=== PATIENT | male | born 1990 | race Caucasian/White ===

== ENCOUNTER 2019-03-03 15:42 | Inpatient (IN) | payer MEDICAID, OTHER ==
[~2019-03-03] VITALS: Ht 160 cm; Wt 67.6 kg
[2019-03-03] MEDS ORDERED: ONDANSETRON HCL 4MG/2ML INJ IV STA (18:30)
[2019-03-03] MEDS ORDERED: SODIUM CHLORIDE 0.9% 1,000 ML IV ONE (18:30)
[2019-03-03] MEDS ORDERED: MORPHINE SULFATE 4 MG/ML CPJ (NOT FOR IM USE) IV STA (18:30)
[2019-03-03 18:46] LABS: BASOPHILS % 0.1 % (0.0-2.0); HEMOGLOBIN. 14.4 g/dL (14.0-18.0); LYMPHOCYTES % 8.6 % (20.0-50.0); MEAN CORPUSCULAR HEMOGLOBIN 29.8 pg (28.0-32.0); MEAN CORPUSCULAR VOLUME 87.2 fL (80.0-94.0); MEAN PLATELET VOLUME 7.9 fl (7.4-10.4); MONOCYTES % 6.2 % (2.0-8.0); NEUTROPHILS % 85.1 % (40.0-76.0); PLATELET 229 x1000/uL (130-400); RED BLOOD CELL COUNT 4.82 mill/uL (4.7-6.1)
[2019-03-03 18:51] LABS: CHLORIDE 100 mEq/L (98-107)
[2019-03-03 18:53] LABS: INR 1.1; PARTIAL THROMBOPLASTIN TIME 27.6 sec (23.4-31.0); PROTHROMBIN TIME 11.3 sec (9.6-11.0)
[2019-03-03 19:33] LABS: CLARITY URINE CLEAR (CLEAR); COLOR URINE YELLOW (YELLOW); KETONES URINE TRACE (NEGATIVE); LEUKOCYTE ESTERASE URINE NEGATIVE (NEGATIVE); NITRITE URINE NEGATIVE (NEGATIVE); OCCULT BLOOD URINE NEGATIVE (NEGATIVE); PH URINE 7.5 (4.5-8.0); PROTEIN URINE NEGATIVE (NEGATIVE); SPECIFIC GRAVITY URINE 1.015 (1.005-1.030); UROBILINOGEN URINE 0.2 E.U./dL (0.2-1.0)
[2019-03-03] MEDS ORDERED: IOHEXOL-300 100 ML BOTTLE ONE (19:44)
[2019-03-03] MEDS ORDERED: PIPERACILLIN/TAZ 3.375G PREMIX 50 ML IV ONE (20:00)
[2019-03-03] MEDS ORDERED: MORPHINE SULFATE 4 MG/ML CPJ (NOT FOR IM USE) IV ONE (20:15)
[2019-03-03] MEDS ORDERED: FENTANYL CITRATE/PF 50MCG/ML 2ML VIAL ONE (21:11)
[2019-03-03] MEDS ORDERED: MIDAZOLAM HCL 2 MG/2 ML VIAL ONE (21:11)
[2019-03-03] MEDS ORDERED: PROPOFOL 200MG/20ML VIAL IV ONE (21:12)
[2019-03-03] MEDS ORDERED: LIDOCAINE HCL/PF 1% 10 MG/ML 5ML VIAL ONE (21:12)
[2019-03-03] MEDS ORDERED: EPHEDRINE SULFATE 50MG/ML VIAL ONE (21:12)
[2019-03-03] MEDS ORDERED: SUCCINYLCHOLINE CHLORIDE 200MG/10ML IV ONE (21:12)
[2019-03-03] MEDS ORDERED: ROCURONIUM BROMIDE 10MG/ML VIAL 5ML IV ONE (21:13)
[2019-03-03] MEDS ORDERED: KETOROLAC 30MG/ML VIAL IV ONE (21:15)
[2019-03-03] MEDS ORDERED: BUPIVACAINE HCL 0.5% (5MG/ML) 50ML ONE (21:27)
[2019-03-03] MEDS ORDERED: SKIN ADHESIVE 0.7 GM EA TOP ONE (21:27)
[2019-03-03] MEDS ORDERED: DEXT 5%/0.45% NACL KCL 20MEQ/L 1,000 ML IV SCH (21:33)
[2019-03-03] MEDS ORDERED: ONDANSETRON HCL 4MG/2ML INJ IV PRN (21:45)
[2019-03-03] MEDS ORDERED: MORPHINE SULFATE 4 MG/ML CPJ (NOT FOR IM USE) IV PRN (21:45)
[2019-03-03] MEDS ORDERED: ACETAMINOPHEN 325MG TABLET PO PRN (21:45)
[2019-03-03] MEDS ORDERED: DEXAMETHASONE 4MG/ML 1ML VIAL ONE (21:57)
[2019-03-03] MEDS ORDERED: SODIUM CHLORIDE 0.9% INJ 3ML FLUSH IVF SCH (22:00)
[2019-03-03] MEDS ORDERED: NEOSTIGMINE METHYLSULFATE 1MG/ML 10 ML VIAL ONE (22:18)
[2019-03-03] MEDS ORDERED: KETOROLAC 30MG/ML VIAL ONE (22:19)
[2019-03-03] MEDS ORDERED: GLYCOPYRROLATE 0.2 MG/ML 2ML VIAL ONE (22:19)
[2019-03-03] MEDS ORDERED: HYDROMORPHONE HCL/PF 2MG/ML CPJ IV PRN (23:15)
[2019-03-04 00:36] VITALS: BP 130/70
[2019-03-04] MEDS: MORPHINE SULFATE 4 MG/ML CPJ (NOT FOR IM USE) IV PRN ×3 (01:28→17:18)
[2019-03-04 03:47] VITALS: BP 98/54
[2019-03-04] MEDS: DEXT 5%/0.45% NACL KCL 20MEQ/L 1,000 ML IV SCH (03:48)
[2019-03-04 08:00] VITALS: BP 108/53
[2019-03-04] MEDS: HYDROCODONE/ACETAMINOPHEN 5/325MG TABLET PO PRN ×2 (08:54→20:56)
[2019-03-04 12:00] VITALS: BP 117/46
[2019-03-04] MEDS ORDERED: SODIUM CHLORIDE 0.9% 1000ML BAG (SEPSIS BOLUS) IV NR (12:45)
[2019-03-04 16:00] VITALS: BP 110/63
[2019-03-04] MEDS ORDERED: HYDROCODONE/ACETAMINOPHEN 5/325MG TABLET PO PRN (18:30)
[2019-03-04 19:57] LABS: BASOPHILS % 0.2 % (0.0-2.0); CHLORIDE 105 mEq/L (98-107); HEMATOCRIT. 37.9 % (42.0-52.0); HEMOGLOBIN. 12.7 g/dL (14.0-18.0); LYMPHOCYTES % 17.4 % (20.0-50.0); MEAN CORPUSCULAR HEMOGLOBIN 29.7 pg (28.0-32.0); MEAN CORPUSCULAR VOLUME 88.4 fL (80.0-94.0); MEAN PLATELET VOLUME 7.2 fl (7.4-10.4); MONOCYTES % 9.1 % (2.0-8.0); NEUTROPHILS % 73.3 % (40.0-76.0); PLATELET 205 x1000/uL (130-400); RED BLOOD CELL COUNT 4.29 mill/uL (4.7-6.1); RED CELL DISTRIBUTION WIDTH 12.9 % (11.6-14.6)
[2019-03-04 20:00] VITALS: BP 109/61
[2019-03-04] MEDS: SODIUM CHLORIDE 0.9% INJ 3ML FLUSH IVF SCH ×2 (21:20→21:21)
[2019-03-05] VITALS: BP 101/50
[2019-03-05 04:00] VITALS: BP 104/57
[2019-03-05] MEDS: HYDROCODONE/ACETAMINOPHEN 5/325MG TABLET PO PRN ×2 (04:28→08:38)
[2019-03-05] MEDS: SODIUM CHLORIDE 0.9% INJ 3ML FLUSH IVF SCH ×2 (05:40→13:11)
[2019-03-05 08:00] VITALS: BP 101/38
[2019-03-05] MEDS: DEXT 5%/0.45% NACL KCL 20MEQ/L 1,000 ML IV SCH (08:42)
[2019-03-05 12:00] VITALS: BP 98/56
[2019-03-05 12:13] VITALS: BP_SYST 111; BP_SYST 113; BP_DIAS 69; BP_DIAS 71
[2019-03-05 12:44] VITALS: BP 111/69
== END 2019-03-05 14:11 | disposition home or self-care (01) | DRG 233 ==
LOC: ER 15:42 → 6EST 20:06 → EDBEDREQTM 20:08 → EDBEDREQ 20:08 → ER 21:13 → ENRESERV 21:27
PROVIDERS: ADMIT Family Medicine; ATTEND Family Medicine
PROC: 0DTJ4ZZ Resection of Appendix, Percutaneous Endoscopic Approach (ICD-10-PCS; principal; 2019-03-03)
DX: K35.30 Acute appendicitis with localized peritonitis, without perforation or gangrene (principal); E86.0 Dehydration
CPT/HCPCS: 36415; 71045; 74177; 84484; 86850; 86900; 88304; 93005; 96361; 96365; 96375; 99285; J0330; J1100; J1885; J2250; J2270; J2405; J2543; J2704; J2710; J3010; J3490; J7030; J7040; Q9967

== ENCOUNTER 2019-03-08 22:40 | Emergency (ER) | payer MEDICAID ==
[~2019-03-08] VITALS: Ht 160 cm; Wt 68.0 kg
[2019-03-08] MEDS ORDERED: MORPHINE SULFATE 4 MG/ML CPJ (NOT FOR IM USE) IV STA (23:29)
[2019-03-08] MEDS ORDERED: ONDANSETRON HCL 4MG/2ML INJ IV STA (23:29)
[2019-03-08] MEDS ORDERED: SODIUM CHLORIDE 0.9% 1,000 ML IV ONE (23:29)
[2019-03-08 23:55] LABS: HEMATOCRIT. 45.3 % (42.0-52.0); HEMOGLOBIN. 15.5 g/dL (14.0-18.0); MEAN CORPUSCULAR HEMOGLOBIN 29.7 pg (28.0-32.0); MEAN CORPUSCULAR VOLUME 86.6 fL (80.0-94.0); MEAN PLATELET VOLUME 6.5 fl (7.4-10.4); PLATELET 339 x1000/uL (130-400); RED BLOOD CELL COUNT 5.23 mill/uL (4.7-6.1); RED CELL DISTRIBUTION WIDTH 12.4 % (11.6-14.6)
[2019-03-09 00:02] LABS: CHLORIDE 101 mEq/L (98-107)
[2019-03-09 00:25] LABS: ATYPICAL LYMPHOCYTES 1; PLATELET ESTIMATE NORMAL
[2019-03-09] MEDS ORDERED: FENTANYL CITRATE/PF 50MCG/ML 2ML VIAL IV ONE (01:45)
[2019-03-09 01:48] LABS: CLARITY URINE CLEAR (CLEAR); COLOR URINE YELLOW (YELLOW); KETONES URINE TRACE (NEGATIVE); LEUKOCYTE ESTERASE URINE NEGATIVE (NEGATIVE); NITRITE URINE NEGATIVE (NEGATIVE); OCCULT BLOOD URINE NEGATIVE (NEGATIVE); PROTEIN URINE TRACE (NEGATIVE); SPECIFIC GRAVITY URINE 1.073 (1.005-1.030); UROBILINOGEN URINE 0.2 E.U./dL (0.2-1.0)
[2019-03-09] MEDS ORDERED: IOHEXOL-300 100 ML BOTTLE ONE (03:08)
[2019-03-09 04:49] VITALS: BP 136/72
== END 2019-03-09 05:00 | disposition home or self-care (01) ==
LOC: ER 22:40
DX: G89.18 Other acute postprocedural pain (principal); R10.13 Epigastric pain; K56.7 Ileus, unspecified; Z90.89 Acquired absence of other organs
CPT/HCPCS: 36415; 71045; 74177; 80053; 81003; 83605; 83690; 85025; 96374; 96375; 99284; J2270; J2405; J3010; J7030; Q9967; Z7610